=== PATIENT | female | born 1985 | race Caucasian/White ===

== ENCOUNTER 2019-04-08 18:17 | Emergency (ER) | payer OTHER ==
[~2019-04-08] VITALS: Ht 167.6 cm; Wt 54.4 kg
[2019-04-08] MEDS ORDERED: RISPERDAL0.25 MG (19:48)
[2019-04-08] MEDS ORDERED: VALPROIC ACID1 ML (19:48)
== END 2019-04-10 15:10 | disposition short-term general hospital (02) ==
LOC: ED 18:17
DX: R41.82 Altered mental status, unspecified (principal); R45.1 Restlessness and agitation; Z91.048 Other nonmedicinal substance allergy status; Z91.011 Allergy to milk products; Z91.012 Allergy to eggs; Z88.8 Allergy status to other drugs, medicaments and biological substances
CPT/HCPCS: 80053; 80176; 81001; 84443; 84703; 85025; 96372; 99285; G0480; J2060; J3486